=== PATIENT | male | born 1960 | race Caucasian/White ===

== ENCOUNTER 2021-11-14 17:08 | Emergency (ER) | payer BC, SELFPAY ==
[2021-11-14 17:18] VITALS: BP 151/106; PULSE 106; RESP 20; TEMP 38; O2SAT 98
--- NOTE | 2021-11-14 17:47 | PC.NURSE ---
Pt ambulatory to desk stating he feels better and is going to head home. Pt advised he is welcome to come back at anytime.
== END 2021-11-14 17:47 | disposition left against medical advice (07) ==
DX: R50.9 Fever, unspecified (principal)
CPT/HCPCS: 99199

== ENCOUNTER 2022-05-10 17:31 | Emergency (ER) | payer BC, SELFPAY ==
--- NOTE | ~2022-05-10 | CT_ITS ---
EXAMINATION: CT abdomen pelvis wo con DATE: 05/10/2022 18:28 INDICATION: suprapubic discomfort, dark urine; had back trauma TECHNIQUE: Computed tomography (CT) of the abdomen and pelvis was performed without intravenous contr ast. Automated exposure control and iterative reconstruction technique were employed. The dose-length product was 497.69 mGy-cm. COMPARISON: None. FINDINGS: Lower thorax: Coronary artery calcifications Liver: Normal. Biliary/Gallbladder: Gallbladder is normal. No bile duct dilation. Pancreas: No mass or duct dilation. Spleen: Normal. Adrenals:No mass. Kidneys: No mass, stone, or hydronephrosis. GI tract: No small or large bowel dilation. Normal appendix. Short segment pericolonic wall and diver ticular thickening with surrounding inflammatory change. Mesentery/Peritoneum: No ascites, mass, or free air. Retroperitoneum: No mass. Atherosclerotic abdominal aortic and/or arterial calcifications. Pelvis: The bladder is partially decompressed with likely reactive inflammation, otherwise the pelvic organs are within normal limits. Soft Tissues: 1.2 x 5 cm cystic area in the lateral aspect of the distal right iliacus muscle. Bones: No acute osseous finding. IMPRESSION: Acute uncomplicated sigmoid diverticulitis. No acute traumatic finding in the abdomen or pelvis. Cyst ic lesion in the distal right iliacus muscle/tendon, may reflect resolving hematoma/strain or other c ystic mass. Consider outpatient pelvic MR with contrast and soft tissue mass protocol for further faustino racterization, particularly if history or physical exam findings do not support iliacus muscle injury . Reviewed, dictated and finalized at location K. IMPRESSION: Acute uncomplicated sigmoid diverticulitis. No acute traumatic finding in the a bdomen or pelvis. Cystic lesion in the distal right iliacus muscle/tendon, may reflect resolving hematoma/strain or other cystic mass. Consider outpatient pel evelina MR with contrast and soft tissue mass protocol for further characterization , particularly if history or physical exam findings do not support iliacus musc le injury.
[2022-05-10 17:40] VITALS: BP 170/102; PULSE 95; RESP 16; TEMP 36.8; O2SAT 100
[2022-05-10 17:52] VITALS: BP 178/106; PULSE 93; RESP 24; O2SAT 97
[2022-05-10 18:01] LABS: Basophils Absolute Auto 0.1 K/mm3 (0.0-0.1); Basophils Percent Auto 0.8 % (0.2-1.2); Eosinophils Absolute Auto 0.6 K/mm3 (0-0.3); Eosinophils Percent Auto 5.4 % (0-4.4); Hematocrit 41.8 % (42.0-52.0); Hemoglobin 14.6 g/dL (14.0-18.0); Immature Granulocyte Absolute 0.03 K/mm3 (0.00-0.031); Immature Granulocyte Percent A 0.3 % (0-0.5); Lymphocytes Absolute Auto 2.12 K/mm3 (0.9-3.2); Lymphocytes Percent Auto 19.8 % (18.3-44.2); Mean Corpuscular HGB Conc 34.9 g/dl (32-36); Mean Corpuscular Hemoglobin 31.3 pg (26-34); Mean Corpuscular Volume 89.5 fl (80-100); Mean Platelet Volume 8.4 fl (7.4-10.4); Monocytes Percent Auto 9.2 % (2.6-8.5); Neutrophils Absolute Auto 6.9 K/mm3 (1.3-6.7); Neutrophils Percent Auto 64.5 % (45.5-73.1); Platelet Count Result 299 k/mm3 (150-375); Red Blood Count 4.67 M/mm3 (4.6-6.20); Red Cell Distribution Width 12.8 % (11.5-14.5); White Blood Count 10.7 K/mm3 (4.5-10.0)
[2022-05-10 18:11] LABS: Alanine Aminotransferase 25 U/L (6-50); Albumin Level 4.8 g/dL (3.5-5.1); Alkaline Phosphatase 77 U/L (38-126); Anion Gap 8 mmol/L (8-16); Aspartate Amino Transferase 29 U/L (17-59); Bilirubin,Total 1.2 mg/dL (0.2-1.3); Blood Urea Nitrogen 11 mg/dL (9-20); Calcium 9.1 mg/dL (8.4-10.2); Carbon Dioxide 25 mmol/L (22-30); Chloride 103 mmol/L (98-107); Estimated CRCL calculation 74 ml/min; Estimated Glomerular Filt Rate > 60; Glucose 132 mg/dL (65-110); Lipase 53 U/L (23-300); Potassium 3.8 mmol/L (3.4-5.0); Sodium 136 mmol/L (137-145)
--- NOTE | 2022-05-10 18:18 | ED.ABDPAIN ---
HPI - Abdominal Pain General Chief Complaint: Fall Stated Complaint: hematuria Time Seen by Provider: 05/10/22 17:48 History of Present Illness HPI narrative: 61-year-old male presents after noticing his urine being dark, has never had kidney stones in the past, denies any dysuria or increased frequency, he also endorses some suprapubic discomfort, he cannot think of anything that could have caused this other than he did trip and landed on his back several days ago but he is not having any back pain today, no focal numbness or weakness. No nausea or vomiting Related Data Home Medications Medication Instructions Recorded Confirmed omeprazole 40 mg capsule,delayed 40 mg PO DAILY 04/20/21 04/22/21 release Allergies Allergy/AdvReac Type Severity Reaction Status Date / Time No Known Allergies Allergy Verified 05/10/22 17:49 Review of Systems Review of Systems: CONST: No fever. HEENT: No sore throat C/V: No chest pain RESP: No cough GI: Reports abdominal pain : Dark urine M/S: No joint pain. SKIN: No rash. NEURO: [No headache or focal numbness or weakness] PSYCH: [No depression] [facility] Past Medical History Medical History GERD (gastroesophageal reflux disease) Surgical History Surgical History H/O shoulder surgery Family History Family History Mother Breast cancer Carcinoma of colon Brain cancer Father Carcinoma of colon Sibling , 71 Lung cancer Sibling , 21 MVA (motor vehicle accident) Social History Social History Social History: Patient drinks 2 sodas daily. Smoking status: Never smoker Second hand tobacco smoke exposure: No Alcohol intake: current Drinks per week: 42 Alcohol use details: Patient drinks 6 beers per day Substance use: current Substance use type: marijuana Other substance usage details: Patient uses marijuana a couple times per week. 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 EYES: EOMI, conjunctiva normal ENT: Hearing grossly intact LUNGS: Nonlabored breathing. HEART: [Regular rate and rhythm] ABD: [Soft], [nontender to palpation] BACK: No CVA tenderness or midline tenderness EXT: Normal range of motion SKIN: [No rashes or lesions.] NEURO: [Alert and oriented x 3. No gross focal sensory or strength deficits.] PSYCH: Normal affect Course Vital Signs Vital signs: Vital Signs Temperature 98.2 F 05/10/22 17:40 Pulse Rate 95 05/10/22 17:40 Respiratory Rate 16 05/10/22 17:40 Blood Pressure 170/102 H 05/10/22 17:40 Pulse Oximetry 100 05/10/22 17:40 Oxygen Delivery Room Air 05/10/22 17:40 Temperature 98.2 F 05/10/22 17:40 Pulse Rate 93 05/10/22 17:52 Respiratory Rate 24 H 05/10/22 17:52 Blood Pressure 178/106 H 05/10/22 17:52 Pulse Oximetry 97 05/10/22 17:52 Oxygen Delivery Room Air 05/10/22 17:40 MDM - Abdominal Pain MDM Narrative Medical decision making narrative: 61-year-old male presenting with dark urine and some abdominal pain, as well as recent back injury, vital stable, exam shows well-appearing patient with no flank or midline tenderness and no neurologic deficits, soft abdomen with minimal tenderness to the lower abdomen, differential includes stone, other intra-abdominal etiology, UTI, kidney injury. Labs notable for slight white count and some blood in urine, CT notable for iliac is hematoma
[2022-05-10 18:53] LABS: Appearance Urine Clear (Clear); Bilirubin Urine 1+ (Negative); Blood Urine 1+ (Negative); Color Urine Yellow (Yellow); Glucose Urine UA Negative (Negative); Ketones Urine Negative (Negative); Leukocyte Esterase Ur Negative LEU/UL (Negative); Nitrate Urine Negative (Negative); Protein Urine 2+ mg/dL (Negative); Specific Grav Ur >= 1.030 (1.001-1.035); pH Urine 5.5 (5.0-9.0)
[2022-05-10 18:56] LABS: Mucus Urine Moderate /lpf; RBC Urine 0-2 /hpf (0-2); Squamous Epithelial Cell Urine Rare /hpf (Few); WBC Urine 0-3 /hpf
[2022-05-10 18:57] LABS: Add Urine Microscopic? YES
[2022-05-10 19:46] VITALS: BP 169/95; PULSE 89; RESP 20; O2SAT 96
[2022-05-10] MEDS: AMOXICILLIN/CLAVULANATE K 875-125 MG TAB 1 TABLET PO (19:46)
== END 2022-05-10 19:55 | disposition home or self-care (01) ==
LOC: ANHED 19:18
PROVIDERS: Emergency Medicine; Emergency Provider Emergency Medicine; PCP Emergency Medicine
DX: K57.92 Diverticulitis of intestine, part unspecified, without perforation or abscess without bleeding (principal); K21.9 Gastro-esophageal reflux disease without esophagitis
CPT/HCPCS: 36415; 74176; 80053; 81001; 83690; 85025; 99284; A9270

== ENCOUNTER 2022-05-18 08:03 | Outpatient (CLI) | payer BC, SELFPAY ==
--- NOTE | ~2022-05-18 | MR_ITS ---
EXAMINATION: MR pelvis wo/w con DATE: 05/18/2022 09:11 INDICATION: Pelvic mass. TECHNIQUE: Magnetic resonance imaging (MRI) of the pelvis was performed without and with 17 mL MultiH ance intravenous contrast. COMPARISON: CT abdomen and pelvis 05/10/2022 FINDINGS: There are no dilated loops of bowel. There is wall thickening of sigmoid colon with adjacent fat stra nding. There is no free intraperitoneal fluid. There are small bilateral hydroceles. There is osteone crosis in the anterosuperior aspect of left femoral head. There is mild osteoarthritis of the hips. T here are fluid collections along the iliopsoas muscles bilaterally with communication with the hip barrington ints, consistent with iliopsoas bursitis. The larger fluid collection is on the right and measures 2. 1 x 1.8 x 5.3 cm. IMPRESSION: 1. Bilateral iliopsoas bursitis. The right-sided iliopsoas bursitis correlates with the CT abnormalit y. 2. Osteonecrosis of left femoral head. 3. Mild osteoarthritis of the hips. 4. Persistent findings of sigmoid diverticulitis. Reviewed, dictated and finalized at location A. IMPRESSION: 1. Bilateral iliopsoas bursitis. The right-sided iliopsoas bursitis correlates with the CT abnormality. 2. Osteonecrosis of left femoral head. 3. Mild osteoarthritis of the hips. 4. Persistent findings of sigmoid diverticulitis.
== END 2022-05-18 08:04 | disposition home or self-care (01) ==
LOC: ANHIMG 08:06
PROVIDERS: PCP Emergency Medicine; Visit Provider Emergency Medicine
DX: M16.0 Bilateral primary osteoarthritis of hip (principal); M71.58 Other bursitis, not elsewhere classified, other site; M87.852 Other osteonecrosis, left femur
CPT/HCPCS: 72197; A9577

== ENCOUNTER 2022-10-24 12:25 | Emergency (ER) | payer BC, SELFPAY ==
--- NOTE | ~2022-10-24 | XR_ITS ---
EXAMINATION: XR chest 2V DATE: 10/24/2022 14:01 INDICATION: Cough. TECHNIQUE: Frontal and lateral views of the chest were obtained. COMPARISON: CT abdomen and pelvis 05/10/2022 FINDINGS: The chest demonstrates clear lungs without pneumonia, pleural effusion, or pneumothorax. Th e heart size is normal. There is mild chronic anterior wedging of multiple vertebral bodies. IMPRESSION: 1. No acute cardiopulmonary disease. Reviewed, dictated and finalized at location A. USION ANALYST
[2022-10-24 12:33] VITALS: BP 169/101; PULSE 108; RESP 16; TEMP 37.4; O2SAT 98
--- NOTE | 2022-10-24 13:30 | ED.URI ---
HPI - URI/Sore Throat General Chief Complaint: Upper Respiratory Infection Stated Complaint: cold flu Time Seen by Provider: 10/24/22 13:30 Source: patient, RN notes reviewed and old records reviewed Mode of arrival: ambulatory Limitations: no limitations History of Present Illness HPI Narrative: 62-year-old male who presents to [facility] with complaints of 1 month duration of cough, intermittent fevers, diarrhea ,now with some dizziness. Patient states he has lost 18 lb since Thanksgiving reports that he feels weak. Patient reports that he has been taking NyQuil and also some left over antibiotics that were his daughters. Patient reports that he has not had COVID vaccinations or flu shot, did home COVID test Monday which was negative. MD elicited complaint: fever (intermittent,diarrhea dizziness) and cough Onset (ago): month(s) (1) Pain scale (0-10): 0 Treatments prior to arrival: other (NyQuil,daughters left over antibiotics) Related Data Home Medications Medication Instructions Recorded Confirmed omeprazole 40 mg capsule,delayed 40 mg PO DAILY 04/20/21 06/30/22 release Allergies Allergy/AdvReac Type Severity Reaction Status Date / Time No Known Allergies Allergy Verified 06/30/22 09:01 Review of Systems Review of Systems: CONSTITUTIONAL: Reports malaise, chills, sweats, intermittent fever. EYES: Denies visual changes, redness, or discharge. ENT: Reports rhinorrhea, congestion, sinus pain,no otalgia no sore throat. CARDIOVASCULAR: Denies chest pain, palpitations, or edema. RESPIRATORY: Reports persistent cough.?Reports some dyspnea. GASTROINTESTINAL: Denies abdominal pain, nausea, vomiting, some diarrhea SKIN: Denies rash or itching. MUSCULOSKELETAL: Denies myalgia. NEUROLOGIC: Denies headache.reports feels weak, some dizziness All systems reviewed & are unremarkable except as noted in HPI and below PMFSH Past Medical History Medical History (Updated 11/03/22 @ 14:18 by Fouzia Brown NP) Diverticulitis GERD (gastroesophageal reflux disease) Hypertension HARRIS (obstructive sleep apnea) Surgical History Surgical History H/O shoulder surgery Family History Family History Mother Breast cancer Carcinoma of colon Brain cancer Father Carcinoma of colon Sibling , 71 Lung cancer Sibling , 21 MVA (motor vehicle accident) Other Hypertension Social History Social History Social History: Patient drinks 2 sodas daily. Smoking status: Never smoker Second hand tobacco smoke exposure: No Alcohol intake: current Drinks per week: 42 Alcohol use details: Patient drinks 6 beers per day Substance use: current Substance use type: marijuana Other substance usage details: Patient uses marijuana a couple times per week. 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 There is no relevant family history pertinent to the presenting complaint Exam Narrative: GENERAL: Well-appearing, well-nourished, and in no acute distress. HEAD: Normocephalic EYES: PERRLA, conjunctivae clear ENT: Nares clear, turbinates edematous and erythematous, clear discharge. Mucous membranes moist. TM pearly farrell with dull light reflex bilaterally; no tragal tenderness. Oropharynx erythematous without lesions. Tonsils not enlarged and without exudate, no drooling, no hoarseness, no trismus, uvula midline.post nasal drainage. NECK: Supple. No lymphadenopathy CHEST: Clear to auscultation, breath sounds equal. No wheez
== END 2022-10-24 14:23 | disposition home or self-care (01) ==
PROVIDERS: Emergency Provider Registered Nurse
DX: J06.9 Acute upper respiratory infection, unspecified (principal); F12.90 Cannabis use, unspecified, uncomplicated; K21.9 Gastro-esophageal reflux disease without esophagitis
CPT/HCPCS: 71046; 99213; G0463

== ENCOUNTER 2022-12-07 09:20 | Outpatient (CLI) | payer BC, SELFPAY ==
[2022-12-07 20:18] LABS: Cholesterol 243 mg/dL (0-200); HDL Direct 61 mg/dL; Triglycerides 107 mg/dL (<150)
[2022-12-07 20:29] LABS: LDL Cholesterol Direct 131 mg/dL
[2022-12-07 20:48] LABS: Prostate Specific Antigen 0.7 ng/mL (< OR = 4.0)
[2022-12-07 20:53] LABS: Hemoglobin A1C 5.2 % (<5.7)
== END 2022-12-07 09:21 | disposition home or self-care (01) ==
PROVIDERS: PCP Family Medicine; Visit Provider Family Medicine
DX: Z00.00 Encounter for general adult medical examination without abnormal findings (principal); R73.09 Other abnormal glucose; Z12.5 Encounter for screening for malignant neoplasm of prostate
CPT/HCPCS: 36415; 80061; 83036; 84153; G0103

== ENCOUNTER 2023-01-21 13:55 | Emergency (ER) | payer BC, SELFPAY ==
[2023-01-21 14:01] VITALS: BP 152/99; PULSE 100; RESP 16; TEMP 37.7; O2SAT 97
--- NOTE | 2023-01-21 15:05 | ED.URI ---
HPI - URI/Sore Throat General Chief Complaint: Upper Respiratory Infection Stated Complaint: Cough/Fever Time Seen by Provider: 01/21/23 15:05 Source: patient, RN notes reviewed and old records reviewed Mode of arrival: ambulatory Limitations: no limitations History of Present Illness HPI Narrative: 62 year old male accompanied by spouse with complaints of 5 day history of head congestion, cough, post nasal drainage chills, fatigue and body aches. Patient reports that cough is especially bad at night and is not resting well.Patient reports that he has been taking NyQuil for his symptoms. Patient reports that he has had some low grade temperature with highest noted around 100.1F. Patient denies any sore throat or any acute shortness of breath.Patient reports that he took COVID test this morning and it was negative. MD elicited complaint: fever, cough, rhinorrhea, nasal congestion and other (body aches) Onset (ago): day(s) (5) Able to tolerate fluids by mouth: Yes Treatments prior to arrival: other (NyQuil) Related Data Home Medications Medication Instructions Recorded Confirmed fluticasone propionate 220 1 puff inhalation Q12H 12/07/22 01/21/23 mcg/actuation HFA aerosol inhaler pantoprazole 40 mg tablet,delayed See Rx Instructions .Route .COMPLEX 01/21/23 01/21/23 release Allergies Allergy/AdvReac Type Severity Reaction Status Date / Time No Known Allergies Allergy Verified 01/21/23 14:35 Review of Systems Review of Systems: CONSTITUTIONAL: Reports malaise, chills, sweats, or fever. EYES: Denies visual changes, redness, or discharge. ENT: Reports rhinorrhea, congestion, sinus pain, no otalgia no sore throat. CARDIOVASCULAR: Denies chest pain, palpitations, or edema. RESPIRATORY: Reports cough.? Denies dyspnea. GASTROINTESTINAL: Denies abdominal pain, nausea, vomiting, diarrhea SKIN: Denies rash or itching. MUSCULOSKELETAL: Reports myalgia. NEUROLOGIC: Denies headache. All systems reviewed & are unremarkable except as noted in HPI and below PMFSH Past Medical History Medical History (Updated 01/22/23 @ 00:02 by Refugio Amado) Diverticulitis GERD (gastroesophageal reflux disease) Hypertension HARRIS (obstructive sleep apnea) Surgical History Surgical History H/O shoulder surgery Family History Family History Mother Breast cancer Carcinoma of colon Brain cancer Father Carcinoma of colon Sibling , 71 Lung cancer Sibling , 21 MVA (motor vehicle accident) Other Hypertension Social History Social History (Updated 12/07/22 @ 11:58 by Latisha Helm MA) Social History: Patient drinks 2 sodas daily. Smoking status: Never smoker Second hand tobacco smoke exposure: No Alcohol intake: current Drinks per week: 30 Substance use: current Substance use type: marijuana Other substance usage details: Patient uses marijuana a couple times per week. 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 There is no relevant family history pertinent to the presenting complaint Exam Narrative: GENERAL: Well-appearing, well-nourished
== END 2023-01-21 15:25 | disposition home or self-care (01) ==
PROVIDERS: Emergency Provider Registered Nurse; PCP Family Medicine
DX: J06.9 Acute upper respiratory infection, unspecified (principal); I10 Essential (primary) hypertension
CPT/HCPCS: 99213; G0463

== ENCOUNTER 2023-06-14 08:14 | Outpatient (CLI) | payer BC, SELFPAY ==
[2023-06-14 18:13] LABS: Basophils Absolute Auto 0.1 K/mm3 (0.0-0.1); Basophils Percent Auto 1.4 % (0.2-1.2); Eosinophils Absolute Auto 0.6 K/mm3 (0-0.3); Eosinophils Percent Auto 9.7 % (0-4.4); Hematocrit 44.8 % (42.0-52.0); Hemoglobin 14.7 g/dL (14.0-18.0); Immature Granulocyte Absolute 0.01 K/mm3 (0.00-0.031); Immature Granulocyte Percent A 0.2 % (0-0.5); Lymphocytes Absolute Auto 2.19 K/mm3 (0.9-3.2); Lymphocytes Percent Auto 38.6 % (18.3-44.2); Mean Corpuscular HGB Conc 32.8 g/dl (32-36); Mean Corpuscular Hemoglobin 30.4 pg (26-34); Mean Corpuscular Volume 92.6 fl (80-100); Mean Platelet Volume 9.3 fl (7.4-10.4); Monocytes Absolute Auto 0.6 K/mm3 (0.1-0.6); Neutrophils Absolute Auto 2.3 K/mm3 (1.3-6.7); Neutrophils Percent Auto 40.1 % (45.5-73.1); Platelet Count Result 308 k/mm3 (150-375); Red Blood Count 4.84 M/mm3 (4.6-6.20); Red Cell Distribution Width 13.4 % (11.5-14.5); White Blood Count 5.7 K/mm3 (4.5-10.0)
[2023-06-14 18:56] LABS: Alanine Aminotransferase 28 U/L (6-50); Albumin Level 4.3 g/dL (3.5-5.1); Alkaline Phosphatase 52 U/L (38-126); Anion Gap 5 mmol/L (8-16); Aspartate Amino Transferase 53 U/L (17-59); Bilirubin,Total 0.6 mg/dL (0.2-1.3); Blood Urea Nitrogen 13 mg/dL (9-20); Calcium 8.9 mg/dL (8.4-10.2); Carbon Dioxide 24 mmol/L (22-30); Chloride 106 mmol/L (98-107); Cholesterol 234 mg/dL (0-200); Estimated Glomerular Filt Rate > 60; Glucose 102 mg/dL (65-110); HDL Direct 56 mg/dL; Sodium 135 mmol/L (137-145); Triglycerides 176 mg/dL (<150)
[2023-06-14 19:07] LABS: LDL Cholesterol Direct 130 mg/dL
== END 2023-06-14 08:15 | disposition home or self-care (01) ==
PROVIDERS: PCP Nurse Practitioner Adult Health; Visit Provider Nurse Practitioner Adult Health
DX: I10 Essential (primary) hypertension (principal)
CPT/HCPCS: 36415; 80053; 80061; 85025

== ENCOUNTER 2024-02-26 19:23 | Emergency (ER) | payer BC, SELFPAY ==
[2024-02-26 19:30] VITALS: BP 139/87; PULSE 86; RESP 20; TEMP 36.7; O2SAT 97
--- NOTE | 2024-02-26 19:33 | ED.GENADULT ---
HPI - General Adult General Chief complaint: Ear Stated complaint: Left Ear Pain Source: patient, RN notes reviewed and old records reviewed Mode of arrival: ambulatory Limitations: no limitations History of Present Illness HPI narrative: 63-year-old male patient presents to [facility] with complaint of left ear pain this started approximately 1 week ago. Patient states now is having pain and ear with pain that goes into jaw and head. Patient states started as a little pimple in the ear and that he has been picking at. Related Data Allergies Allergy/AdvReac Type Severity Reaction Status Date / Time No Known Allergies Allergy Verified 06/14/23 07:44 Review of Systems Constitutional: Constitutional: Reports no additional constitutional complaints, Denies body ache(s), Denies chills, Denies fatigue, Denies fever(s) and Denies headache(s) Eyes: Eyes: Reports no additional eye complaints and Denies blurry vision ENT: Reports system reviewed and no additional complaints, except as documented, Denies vertigo, Denies dizziness, Denies ear discharge, Reports otalgia, Denies facial pain, Denies headache(s), Denies nasal congestion, Denies nasal discharge, Denies sinus pain, Denies sinus pressure and Denies sore throat Cardiovascular: Cardiovascular: Reports no additional cardiovascular complaints, Denies chest pain, Denies chest pain at rest, Denies rapid heart rate and Denies dyspnea Respiratory: Respiratory: Reports no additional respiratory complaints, Denies chest congestion, Denies cough, Denies pain on inspiration, Denies pain with cough and Denies dyspnea Gastrointestinal: Gastrointestinal: Denies abdominal pain, Denies diarrhea, Denies nausea and Denies vomiting Integumentary/Breasts: Skin/Breast: Denies rash Neurologic: Reports system reviewed and no additional complaints, except as documented, Denies vertigo, Denies dizziness and Denies headache(s) Endocrine: Endocrine: Denies fatigue [facility] Past Medical History Medical History Diverticulitis GERD (gastroesophageal reflux disease) Hypertension HARRIS (obstructive sleep apnea) Surgical History Surgical History H/O shoulder surgery Family History Family History Mother Breast cancer Carcinoma of colon Brain cancer Father Carcinoma of colon Sibling , 71 Lung cancer Sibling , 21 MVA (motor vehicle accident) Other Hypertension Social History Social History Social History: Patient drinks 2 sodas daily. Smoking status: Never smoker Second hand tobacco smoke exposure: No Alcohol intake: current Drinks per week: 30 Substance use: current Substance use type: marijuana Other substance usage details: Patient uses marijuana a couple times per week. 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 There is no relevant family history pertinent to the patient complaint. Exam Const: General: cooperative, healthy appearing, no acute distress and well nourished Nutri
== END 2024-02-26 19:46 | disposition home or self-care (01) ==
PROVIDERS: Emergency Provider Registered Nurse; PCP Family Medicine
DX: H60.392 Other infective otitis externa, left ear (principal); F12.90 Cannabis use, unspecified, uncomplicated; K21.9 Gastro-esophageal reflux disease without esophagitis; I10 Essential (primary) hypertension
CPT/HCPCS: 99213; G0463

== ENCOUNTER 2024-12-19 14:25 | Outpatient (CLI) | payer BC, SELFPAY ==
--- NOTE | ~2024-12-19 | XR_ITS ---
EXAMINATION: [id number] DATE: 12/19/2024 14:39 INDICATION: Neck pain. TECHNIQUE: 4 views of cervical spine were obtained. COMPARISON: None. FINDINGS: Alignment is normal. Vertebral body heights and intervertebral disc heights are normal. The re are anterior osteophytes at most levels. There is multilevel mild facet joint osteoarthritis. No c entral canal stenosis. IMPRESSION: 1. Mild cervical spondylosis. Reviewed, dictated and finalized at location A. UM SPECIALIST
--- OUTSIDE RECORDS SUMMARY | 2024-12-19 14:29 | XMS_ITS | Encounter Summary ---
Author Organization [facility] Address [address] [place] [address] Phone Care Team Providers Care Camouflage Specialist Name Role Phone Amandeep Ortega MD Primary Care Provider [phone] Arsalan Cote MD Primary Care Provider [phone] Susan Bo MD Unavailable [phone] Reason for Visit * Reason Comments Medication Refill Encounter Details Date Type Department Care Team (Late st Contact Info) Description 06/17/2022 Refill [facility] - Gastroenterology [facility] [address] [place] [id number] Susan Bo MD [address] [place] [address] Medication Refill Social History Tobacco Use Types Packs/Day Years Used Date Smoking Tobacco: Never Smokeless Tobacco: Never Alcohol Use Standard Drinks/Week Comments Yes 7 (1 standard drink = 0.6 oz pur e alcohol) Sexually Active Control Partners Comments Yes Sex and Gender Information Value Date Recorded Sex Assigned at Not on file Legal Sex Male 8:47 PM CDT Gender Identity Not on file Sexual Orientation Not on file COVID-19 Exposure Response Date Recorded In the last 10 days, have yo u been in contact with someone who was confirmed or suspected to have Coronavirus/COVID-19? No / Unsure 06/17/2022 3:15 PM CDT documented as of this encounter Miscellaneous Notes * Telephone Encounter - Anna Francisco - 06/22/2022 1:13 PM CDT Pt made aware, he isn't having any problems at this time. * Telephone Encounter - Anna Francisco - 06/21/2022 9:15 AM CDT Left message for pt to call back. * Telephone Encounter - Tatiana Myers PAC - 06/20/2022 11:06 AM CDT Prescription was renewed for 90 days. He can get further refills from his primary care provider if his symptoms are well controlled. * Telephone Encounter - Flaquita Garner RN - 06/20/2022 10:52 AM CDT Pharmacy requesting refill of: Requested Prescriptions Pending Prescriptions Disp Refills ??? omeprazole (PriLOSEC) 40 MG CAPSULE DELAYED RELEASE [Pharmacy Med Name: OMEPRAZOLE DR 40 MG CAPSULE] 30 Capsule 17 Sig: TAKE 1 CAPSULE BY MOUTH EVERY DAY Last fill: 02/11/[address] Mendez Patients last OV with GI: 04/21/2021 Next Office Visit with GI: None scheduled. Per pathology report from 01/27/2021: Steve Mendez, DO 01/28/2021 ??2:11 PM CDT Biopsies much improved. ??After 1 month decrease spray to 1 time per day. ??OV 3 months. Pathology report from 10/14/2020: Steve Mendez, DO 10/15/2020 ??1:15 PM DRY PAN CHARGER Shows eosinophilic esophagitis. ??He needs Flovent 220 micro g. Two sprays swallow b.i.d.. ??Recheck EGD 4 months or so. Omeprazole order pended, please review. documented in this encounter Plan of Treatment Not on file documented as of this encounter Visit Diagnoses Not on filedocumented in this encounter Additional Health Concerns Infection Onset Date Last Indicated Resolved Time COVID - 19 07/13/2022 07/13/2022 07/23/2022 12:1 6 AM CDT documented as of this encounter Care Teams Camouflage Specialist Relationship Specialty Start Date End Date Amandeep Ortega MD [address] [facility] [address] [place] [address] PCP - General Internal Medicine 05/23/22 12/27/22 Arsalan Cote MD [address] [place] [id number] PCP - General Family Medicine 12/28/22 Susan Bo MD [address] [place] [address] Consulting Physician Gastroenterology 11/17/22 documented as of this encounter
--- OUTSIDE RECORDS SUMMARY | 2024-12-19 14:29 | XMS_ITS | Continuity of Care Document ---
Author Organization [facility] Address [address] [place] [address] [address] [place] [address] Phone Care Team Providers Care Jet Dyeing Machine Operator Name Role Phone Warren Ring MD Unavailable Unavailable Allergies, Adverse Reactions, Alerts Substance Reaction Status Criticality No Known Allergies Active No Inform ation Medications Medication Instructions Dosage Effective Dates (start - stop) Status Comments No Drug Therapy Prescribed Procedures Procedure Date OFFICE/OUTPATIENT VISIT EST OFFICE/OUTPATIENT VISIT EST POSTOP FOLLOW-UP VISIT POSTOP FOLLOW-UP VISIT OFFICE/OUTPATIENT VISIT EST OFFICE/OUTPATIENT VISIT EST OFFICE/OUTPATIENT VISIT EST OFFICE/OUTPATIENT VISIT EST OFFICE/OUTPATIENT VISIT EST OFFICE/OUTPATIENT VISIT EST OFFICE/OUTPATIENT VISIT EST Advance Directives Directive Yes / No Effective Date File Name No Information Encounters Encounter Description Practice Location Reason(s) For Visit Diagnoses Date Provider Providers Copied on Encounter [facility], [address] [place] [address], [address], tel:[phone] [facility] No Information 5 María Elena Kelley. [address] [place] [address], [id number] . tel: [phone] OFFICE/OUTPA TIENT VISIT EST [facility], [address] [place] [address], [address], tel:[phone] [facility] WC f/u R shoulder (chief complaint) Shoulder impingement 4 María Elena Kelley. [address], [place], [id number] . tel: [phone] OFFICE/OUTPA TIENT VISIT EST [facility], [address] [place] [address], [address], [place] tel:[phone] [facility] WC f/u R shoulder (chief complaint) Bursitis/tendon itis, shoulder 4 María Elena Kelley. [address], [place], [id number] . tel: [phone] [facility], [address] [place] [address], [address], [place] tel:[phone] [facility] w/c f/u r shoulder (chief complaint) Shoulder impingement 4 María Elena Kelley. [address], [place], [id number] . tel: [phone] [facility], [address] [place] [address], [address], [place] [phone] [facility] W/C F/U R SHOULDER (chief complaint) Shoulder impingementBurs itis/tendonitis , shoulder 4 María Elena Kelley. [address], [place], [id number] . tel: [phone] [facility], [address] [place] [address], [address], [place] [phone] [facility] F/U W/C R SHOULDER SURGERY (chief complaint) Shoulder impingement 4 María Elena Kelley. [address], [place], [id number] . tel: [phone] [facility], [address] [place] [address], [address], [place] tel:[phone] [facility] Shoulder impingementBurs itis/tendonitis , shoulder 2 4 María Elena Kelley. [address], [place], [id number] . tel: [phone] OFFICE/OUTPA TIENT VISIT [facility], [address] [place] [address], [address], [place] tel:[phone] [facility] Bursitis/tendon itis, shoulderShoulde r impingement May-0 2-201 4 Strege Warren. [address], [place], [id number] . tel: [phone] OFFICE/OUTPA TIENT VISIT [facility], [address] [place] [address], [address], [place] tel:[phone] [facility] WC- f/u MRI R shoulder (chief complaint) Bursitis/tendon itis, shoulder Reagan-0 3-201 4 Strege Warren. [address], [place], [id number] . tel: [phone] OFFICE/OUTPA TIENT VISIT [facility], [address] [place] [address], [address], [place] tel:[phone] [facility] Bursitis/tendon itis, shoulder May-2 0-201 4 Strege Warren. [address], [place], [id number] . tel: [phone] OFFICE/OUTPA TIENT VISIT [facility], [address] [place] [address], [address], [place] tel:[phone] [facility] Bursitis/tendon itis, shoulder Apr-2 2-201 4 Strege Warren. [address], [place], [id number] . tel: [phone] OFFICE/OUTPA TIENT VISIT [facility], [address] [place] [address], [address], [place] tel:[phone] [facility] Bursitis/tendon itis, shoulder Mar-2 5-201 4 Strege Warren. [address], [place], [id number] . tel: [phone] OFFICE/OUTPA TIENT VISIT EST [facility], [address] [facility] [address], [place], [address], [phone] [facility] Bursitis/tendon itis, shoulder 4 María Elena Kelley. [address], [place], [id number] . tel: [phone] OFFICE/OUTPA TIENT VISIT [facility], [address] [facility] [address], [place], [address], [phone] [facility] Bursitis/tendon itis, shoulderLateral epicondylitis 4 María Elena Kelley. [address], [place], [id number] . tel: [phone] Family History Family Member Type Diagnosis Age At Onset No Information Payers Payer name Insurance type Covered republican ID Authoriza tion(s) No Information Social History Type Description Quantity Date Captured Comments Sex Male Smoking Status No Information Chief Complaint And Reason For Visit No Information Reason For Referral Reason For Referral No Information Plan Of Treatment Date Type Action Status Referral Ordered: MRI ANY JT UXTR C-MATRL ordered History Of Present Illness Encounter Date Complaint History Of Prese nt Illness WC f/u R shoulder WC f/u R shoulder w/c f/u r shoulder W/C F/U R SHOULDER F/U W/C R SHOULDER SURGERY Functional Status Date Functional Assessmen t No Information Medications Administered Medication Instructions Dosage Effective Dates (start - stop) Status Comments No Drug Therapy Prescribed Instructions Date Instruction Additional Infor mation Immobilize as directed. Related to Bursitis/tendonitis, shoulder Apply ice as tolerated. Related to Bursitis/tendonitis, shoulder Immobilize as directed. Related to Shoulder impingement Apply ice as tolerated. Related to Shoulder impingement Physical activity counseling Rel ated to Dietary Surveillance Counseling Physical activity counseling Rel ated to Dietary Surveillance Counseling Physical activity counseling Rel ated to Dietary Surveillance Counseling Physical activity counseling Rel ated to Dietary Surveillance Counseling Physical activity counseling Rel ated to Dietary Surveillance Counseling Physical activity counseling Rel ated to Dietary Surveillance Counseling Assessments Type Assessment Date No Information Patient Care Teams Name Effective Dates (start - stop) Status Members No Information
--- OUTSIDE RECORDS SUMMARY | 2024-12-19 14:29 | XMS_ITS | Clinical Summary ---
Author Organization [facility] Address [address] [place] [address] Phone Care Team Providers Care Research Center Director Name Role Phone Unavailable Primary Care Provider Unavailabl e Allergies No known active allergies Medications HYDROcodone-lonnie taminophen (NORCO) 5-325 mg tablet Take 2 Tabs by mouth every 4 hours as needed for Pain, Moderate (For Pain Scale 4-6). 40 Tab 0 07/08/2014 Active Active Problems No known active problems Social History Tobacco Use Types Packs/Day Years Used Date Smoking Tobacco: Never Alcohol Use Standard Drinks/Week Comments Yes 0 (1 standard drink = 0.6 oz pur e alcohol) daily Sex and Gender Information Value Date Recorded Sex Assigned at Not on file Legal Sex Male 10:05 AM CDT Gender Identity Not on file Sexual Orientation Not on file Last Filed Vital Signs Vital Sign Reading Time Taken Comments Blood Pressure 126/85 07/08/2014 9:51 AM CDT Pulse 72 07/08/2014 9:51 AM CDT Temperature 36.1 C (97 F) 07/08/2014 9:51 AM CDT Respiratory Rate 18 07/08/2014 9:51 AM CDT Oxygen Saturation 96% 07/08/2014 9:51 AM CDT Inhaled Oxygen Concentration - - Weight 89.8 kg (198 lb) 07/08/2014 5:40 AM CDT Height 167.6 cm (5' 6 ) 06/24/2014 3:34 PM CDT Body Mass Index 31.96 06/24/2014 3:34 PM CDT Plan of Treatment Health Maintenance Due Date Last Done Comments DTAP/TDAP/TD VACCINES (1 - Tdap) 1980 COLORECTAL SCREENING 2006 Colorectal Cancer Screening 2006 FIT-DNA Q 3 years 2006 FIT/FOBT Q 1 year 2006 Flex Sig/CT Colonography Q 5 years 2006 ZOSTER VACCINE (1 of 2) 2011 INFLUENZA VACCINE (#1) 2024 RSV VACCINE (60+ or ) (1 - 1-dose 75+ series) 2036 PNEUMOCOCCAL VACCINE 0-64 YEARS Aged Out No longer eligible based on patient's age to complete this topic Advance Directives For more information, please contact: [phone] * Full Code (Latest Code Status on File) Date Activated Date Inactivated Comments 07/08/2014 6:58 AM 07/08/2014 12:22 PM * Full Code Date Activated Date Inactivated Comments 07/08/2014 5:41 AM 07/08/2014 6:58 AM
--- OUTSIDE RECORDS SUMMARY | 2024-12-19 14:29 | XMS_ITS | Clinical Summary ---
Author Organization [facility] Address [address] [place] [address] Phone Care Team Providers Care Fish Pitcher Name Role Phone Arsalan Cote MD Primary Care Provider [phone] Susan Bo MD Unavailable [phone] Allergies No known active allergies Medications pantoprazole (PROTONIX) 40 MG Tablet Delayed Response Take 1 Tablet by mouth 2 times daily. 60 Tablet 5 11/17/2022 Active lisinopril (PRINIVIL, ZESTRIL) 40 MG Tablet Take 40 mg by mouth daily. Active fluticasone (Flovent HFA) 220 MCG/ACT Aerosol 2 sprays and then swallow once a day 50 g 1 12/30/2022 Active Active Problems No known active problems Immunizations Immunization Administration Dates Next Due TDAP Vaccine 08/15/2018 Family History Medical History Relation Name Comments Cancer Father Colon Cancer Father Relation Name Status Comments Father Social History Tobacco Use Types Packs/Day Years Used Date Smoking Tobacco: Never Smokeless Tobacco: Never Tobacco Cessation:Counseling Given: Not Answered Alcohol Use Standard Drinks/Week Comments Yes 7 (1 standard drink = 0.6 oz pur e alcohol) Sexually Active Control Partners Comments Yes Sex and Gender Information Value Date Recorded Sex Assigned at Not on file Legal Sex Male 8:47 PM CDT Gender Identity Not on file Sexual Orientation Not on file Last Filed Vital Signs Vital Sign Reading Time Taken Comments Blood Pressure 149/84 12/28/2022 11:55 AM RIB TRIM SEPARATOR Pulse 68 12/28/2022 11:55 AM RIB TRIM SEPARATOR Temperature 37 C (98.6 F) 12/28/2022 11:55 AM RIB TRIM SEPARATOR Respiratory Rate 12 12/28/2022 11:55 AM RIB TRIM SEPARATOR Oxygen Saturation 97% 12/28/2022 11:55 AM RIB TRIM SEPARATOR Inhaled Oxygen Concentration - - Weight 86.2 kg (190 lb) 12/13/2022 11:00 AM RIB TRIM SEPARATOR Height 167.6 cm (5' 6 ) 12/13/2022 11:00 AM RIB TRIM SEPARATOR Body Mass Index 30.67 12/13/2022 11:00 AM RIB TRIM SEPARATOR Plan of Treatment Health Maintenance Due Date Last Done Comments Hepatitis C Virus (HCV) Screening 1961 Cologuard 2011 Immunochemical Fecal Occult Blood 2011 Pneumococcal Immunization (5 0+ years) (1 of 1 - PCV) 2011 Zoster Immunization (1 of 2) 2011 PSA Discussion 2016 Influenza Immunization (#1) 2024 SARS-COV-2 Immunization (1 - 2023- season) 2024 Colonoscopy 12/30/2027 12/30/2020, 06/10/2013 Colorectal Cancer Screening 12/30/2027 Respiratory Syncytial Virus (RSV) Immunization (Adult) (1 - 1-dose 75+ series) 2036 12/30/2020, 06/10/2013 DTaP/Tdap/Td Immunization Discontinued 08/15/2018 Hepatitis B Immunization Aged Out No longer eligible based on patient's age to complete this topic Meningococcal Immunization (ACWY) Aged Out No longer eligible based on patient's age to complete this topic Pneumococcal Immunization Combined Aged Out No longer eligible based on patient's age to complete this topic Rotavirus Immunization Aged Out No lo nger eligible based on patient's age to complete this topic Procedures Procedure Name Priority Date/Time Associated Diagnosis Comments COLONOSCOPY Routine 06/10/2013 from Last 3 Months or Most Recently Relevant to Health Maintenance Results * COLONOSCOPY (06/10/2013) Nadia Ko MD PROCEDURE/MINOR SURGICAL OR DERABLES Final Result from Last 3 Months or Most Recently Relevant to Health Maintenance Insurance [facility] Care Teams Fish Pitcher Relationship Specialty Start Date End Date Arsalan Cote MD [address] [place] [address] PCP - General Family Medicine 12/28/22 Susan Bo MD [address] [place] [address] Consulting Physician Gastroenterology 11/17/22
--- OUTSIDE RECORDS SUMMARY | 2024-12-19 14:29 | XMS_ITS | Clinical Summary ---
Author Organization [facility] Address [address] [place] [address] Care Team Providers Care Ointment Mill Tender Name Role Phone Casie Segovia NP Primary Care Provider Allergies No known active allergies Medications predniSONE (DELTASONE) 10 mg tablet Take 6 tablets oral daily for 2 days then 4 tablets daily for 2 days then 3 tablets daily for 2 days then 2 tablets daily for 2 days then 1 tablet daily for 2 days then stop. 32 tablet 02/20/2019 Active Active Problems No known active problems Family History Medical History Relation Name Comments Alcohol abuse Father Cancer Father Hypertension Father Cancer Mother Hypertension Mother Relation Name Status Comments Father Mother Social History Tobacco Use Types Packs/Day Years Used Date Smoking Tobacco: Never Smokeless Tobacco: Never Alcohol Use Standard Drinks/Week Comments Yes 0 (1 standard drink = 0.6 oz pur e alcohol) AUDIT-C Answer Date Recorded Frequency of Alcohol Consumption Never 02/20/2019 Average Number of Drinks Not on file 019 Frequency of Binge Drinking Not on file 02/04 Personal Safety Answer Date Recorded Getting School Help Needed Not on file 01/19 Sex and Gender Information Value Date Recorded Sex Assigned at Not on file 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 Gender Identity Not on file Sexual Orientation Not on file Obstetrics History Last Filed Vital Signs Vital Sign Reading Time Taken Comments Blood Pressure 131/85 02/20/2019 12:54 PM CDT Pulse 87 02/20/2019 12:54 PM CDT Temperature 36.4 C (97.6 F) 02/20/2019 12:54 PM CDT Respiratory Rate 18 02/20/2019 12:54 PM CDT Oxygen Saturation 99% 02/20/2019 12:54 PM CDT Inhaled Oxygen Concentration - - Weight 88 kg (194 lb) 02/20/2019 12:54 PM CDT Height 172.7 cm (5' 8 ) 02/20/2019 12:54 PM CDT Body Mass Index 29.5 02/20/2019 12:54 PM CDT Plan of Treatment Health Maintenance Due Date Last Done Comments Colon Cancer Screening-Colonoscopy 1961 Depression Screening 1961 Hepatitis C Screening 1961 Prostate Cancer Screening-PSA 1961 Hepatitis B Screening 1979 Regular Well Visit/Exam 18-64 1979 Zoster Vaccine (1 of 2) 2011 Influenza Vaccine (#1) 2024 DTaP/Tdap/Td Vaccine (2 - Td or Tdap) 08/15/2028 08/15/2018 Pneumococcal vaccine <65 Aged Out No longer eligible based on patient's age to complete this topic Insurance [employer] Address: [facility] [id number] [place] [address] [email or web address] OOS Member Subscriber Plan / Payer (Ef fective 2024-Present) Name:Jin Tate Relation to Subscriber:Self Name:Jin Tate Payer ID:[id number] (IC) Type:BC ALLIANCE Address: [facility] [address] [place] [id number] Care Teams Ointment Mill Tender Relationship Specialty Start Date End Date Casie Segovia NP [address] [place] [address] PCP - General Nurse Practitioner 12/20/18
--- OUTSIDE RECORDS SUMMARY | 2024-12-19 14:29 | XMS_ITS | Referral Summary ---
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
== END 2024-12-19 14:26 | disposition home or self-care (01) ==
PROVIDERS: PCP Nurse Practitioner Adult Health; Visit Provider Nurse Practitioner Adult Health
DX: M47.812 Spondylosis without myelopathy or radiculopathy, cervical region (principal)
CPT/HCPCS: 72040